=== PATIENT | female | born 1995 | race Caucasian/White ===

== ENCOUNTER 2020-03-08 10:28 | Emergency (ER) | payer OTHER ==
[~2020-03-08] VITALS: Ht 154.9 cm; Wt 50.3 kg
[2020-03-08] MEDS ORDERED: CYCLOBENZAPRINE10 MG PO ×2 (14:02→14:03)
[2020-03-08] MEDS ORDERED: DICLOFENAC SODI50 MG PO (14:03)
== END 2020-03-08 14:07 | disposition home or self-care (01) ==
LOC: ER 10:28
DX: R20.0 Anesthesia of skin (principal); M62.838 Other muscle spasm

== ENCOUNTER 2021-06-09 01:19 | Emergency (ER) | payer OTHER ==
[~2021-06-09] VITALS: Ht 154.9 cm; Wt 53.1 kg
[~2021-06-09 01:19] MED LIST: CYCLOBENZAPRINE10 MG PO; DICLOFENAC SODI50 MG PO
[2021-06-09] MEDS ORDERED: BENADRYL25 MG PO (01:23)
[2021-06-09] MEDS ORDERED: PEPCID AC20 MG PO (06:52)
[2021-06-09] MEDS ORDERED: LEVSIN0.125 MG PO (06:52)
== END 2021-06-09 07:24 | disposition home or self-care (01) ==
LOC: ER 01:19
DX: K29.70 Gastritis, unspecified, without bleeding (principal)

== ENCOUNTER 2025-01-26 08:17 | Emergency (ER) | payer OTHER ==
[~2025-01-26] VITALS: Ht 154.9 cm; Wt 48.5 kg
[~2025-01-26 08:17] MED LIST changes: +BENADRYL25 MG PO; +LEVSIN0.125 MG PO; +PEPCID AC20 MG PO
[2025-01-26] MEDS ORDERED: CLARITIN10 M1 (08:25)
[2025-01-26] MEDS ORDERED: DIPHENHYDRAMINE HCL 50 MG/ML VIAL 1ML IV ONE (09:00)
[2025-01-26] MEDS ORDERED: FAMOtidine 10 MG/ML (4ML VIAL) IV ONE (09:00)
[2025-01-26] MEDS ORDERED: METHYLPREDNISOLONE SOD SUCC 125 MG VIAL IV ONE (09:00)
== END 2025-01-26 10:10 | disposition home or self-care (01) ==
LOC: ER 08:18
DX: T78.40XA Allergy, unspecified, initial encounter (principal)